=== PATIENT | female | born 1980 | race Caucasian/White ===

== ENCOUNTER 2019-01-15 10:21 | Emergency (ER) | payer OTHER ==
[~2019-01-15] VITALS: Ht 175.3 cm; Wt 104.0 kg
[2019-01-15 10:29] VITALS: BP 133/49
[2019-01-15] MEDS ORDERED: LIDOcaine 5% patch TP STA (11:14)
[2019-01-15] MEDS ORDERED: ketorolac tromethamine 15mg/ml inj. IM ONE (11:15)
[2019-01-15] MEDS ORDERED: CYCL-1 PO (11:18)
== END 2019-01-15 12:07 | disposition home or self-care (01) ==
LOC: ER 10:22 → EDBD 10:22 → ER 12:07
DX: S39.012A Strain of muscle, fascia and tendon of lower back, initial encounter (principal); G89.29 Other chronic pain; Z79.899 Other long term (current) drug therapy; Z98.890 Other specified postprocedural states; X50.1XXA Overexertion from prolonged static or awkward postures, initial encounter; Y93.89 Activity, other specified; Y92.89 Other specified places as the place of occurrence of the external cause; Y99.8 Other external cause status
CPT/HCPCS: 96372; 99283; J1885